=== PATIENT | female | born 1990 ===

== ENCOUNTER 2018-01-12 23:42 | Inpatient (IN) | payer MEDICAID ==
[2018-01-13 00:13] VITALS: BMI 25.4
[2018-01-13] MEDS ORDERED: AMPicillin 2 GM in Sodium Chloride 0.9% 100 ML IVPB STA (00:43)
[2018-01-13] MEDS: Lactated Ringer's 1,000 ML IV SCH ×5 (01:00→21:27)
[2018-01-13] MEDS ORDERED: Betamethasone Soluspan 30 mg/5mL Inj Susp IM ONE (01:35)
[2018-01-13 01:46] LABS: BASO % 0.6 % (0.0-2.0); EOS # 0.1 K/uL (0.0-0.7); EOS % 1.4 % (0.0-4.0); HEMOGLOBIN 12.2 g/dL (12.0-16.0); LYMPH # 1.4 K/uL (1.0-4.3); LYMPH % 18.1 % (20.0-40.0); MEAN CELL VOLUME 91.3 fl (81.0-99.0); MEAN CORPUSCULAR HEMOGLOBIN 31.3 pg (27.0-31.0); MEAN CORPUSCULAR HGB CONC 34.3 g/dL (33.0-37.0); MEAN PLATELET VOLUME 11.2 fl (7.2-11.7); MONO # 0.8 K/uL (0.0-0.8); MONO % 10.5 % (0.0-10.0); NEUT # 5.5 K/uL (1.8-7.0); NEUT % 69.4 % (50.0-75.0); NRBC % 0.1 % (0.0-0.0); RBC 3.9 Mil/uL (3.80-5.20); RED CELL DISTRIBUTION WIDTH 13.1 % (11.5-14.5); WHITE BLOOD COUNT 7.9 K/uL (4.8-10.8)
[2018-01-13 01:57] LABS: SQUAMOUS EPITHIAL 1 /hpf (0-5); URINE BACTERIA OCC (<OCC); URINE BILIRUBIN NEGATIVE (NEGATIVE); URINE BLOOD NEGATIVE (NEGATIVE); URINE CLARITY SLIGHTY-CLOUDY (Clear); URINE COLOR STRAW (YELLOW); URINE GLUCOSE (UA) 150 mg/dL (Normal); URINE LEUKOCYTE ESTERASE NEG Leu/uL (Negative); URINE PROTEIN NEGATIVE (NEGATIVE); URINE UROBILINOGEN 0.2-1.0 mg/dL (0.2-1.0)
[2018-01-13] MEDS ORDERED: AMPicillin 2 GM in Sodium Chloride 0.9% 100 ML IVPB SCH (04:00)
[2018-01-13] MEDS ORDERED: Azithromycin 250 MG in Sodium Chloride 0.9% 250 ML IVPB SCH ×2 (04:00→09:00)
--- NOTE | 2018-01-13 05:32 | US ---
EXAM: US After First Trimester, Transabdominal CLINICAL HISTORY: 27 years old, female; Pain; complicated by abdominal or pelvic pain; Lower; Third trimester; Gestational age or lmp: 05/27/2017; ; Additional info: Pprom, estimated weight TECHNIQUE: Real-time transabdominal obstetrical ultrasound of the maternal pelvis and a second or third trimester with image documentation. COMPARISON: No relevant prior studies available. FINDINGS: Fetus: Single live intrauterine gestation. Heart rate: heart rate of 137 beats per minute. Presentation: Breech. Placenta: Anterior placenta. No placenta previa or abruption. Amniotic fluid: SAMMY = 9.7 cm. Anatomy: No gross anomaly is appreciated. BIOMETRICS Gestational age: Estimated gestational age of 33 weeks 5 days by measurements. JUNE: 02/26/2018 by ultrasound. EFW: Estimated weight of 2194 g. BPD: 8.6 cm, correlating with 34 weeks 4 days. HC: 30.8 cm, correlating with 34 weeks 2 days. AC: 29.5 cm, correlating with 33 weeks 3 days. FL: 6.3 cm, correlating with 32 weeks 4 days. MATERNAL: Uterus: Unremarkable. No myometrial mass. Cervix: Closed cervix. Cervical length = 2.2 cm. Free fluid: No free fluid. IMPRESSION: 1. Single live intrauterine gestation. 2. Shortened cervix.
[2018-01-13 05:46] VITALS: O2SAT 100
[2018-01-13] MEDS ORDERED: ceFAZolin 1 GM in Sodium Chloride 0.9% 100 ML IVPB ONE (06:46)
--- NOTE | 2018-01-13 06:54 | OBADHP ---
Datetime: 01/13/2018 00:45 Admit Comment, IP Provider: 27 yo EGA: 33.0 presents with suspected ROM. Pt reports gush of clear fluid per vagina approximately 2 hours prior to arrival. Reports: FM, and occasional CTX; Denies: VB; last sexual activity <48 hrs ROS: denies: dizziness, headaches, blurred vision, CP/SOB/N/V, dysuria care: Dr. Castano at [facility]; dx with cholestasis of pregancy 2 weeks prior and on U rsodiol 300 mg BID obxh: 2010 male FT vaginal uncomplicated pmhx: none famhx: dm soc: denies: smoking, alcohol, illicit drugs surg: none allergies: dust/pollen Meds: ursodiol 300 mg BID General: pleasant, in no acute distress HEENT: normocephalic, PERRLA; AAOx3 Heart: no murmurs, regular rate and rhythm, S1, S2 normal. Lungs: clear to auscultation bilaterally, no wheezing Abdomen: nontender, gravid CVA: negative Lower extremities: negative for pitting edema bedside US: Breech presentation, decreased fluid pockets Speculum exam: revealed pooling, grossly ruptured 27 yo IUP 33 wks via LMP presents with PPROM -Admit to L_D -Labs: CBC, type and screen, UA, urine culture, GBS, HIV, RPR -Meds/Abx: Ampicillin 2 g q6, Erythromycin 250 mg q6 and Betamethasone 12 mg IM Q24 X 2; Continue Ursodiol 300 mg BID -Bedside US for estimated weight Case d/w Dr. Claudia Aleman MD PGY1 Addendum: at 33 weeks gestational age with PPROM in breech presentation. Patient without contractions at this time and cervix closed. heart tracing reassuring. Plan to admit patient for management. Start IV ampicillin and erythromycin, first dose of betameth asone, IV fluid hydration, OB ultrasound for estimated weight and cervical length. I discussed with patient all patient questions answered. I discussed with patient that there are any signs of lab or, compromise, or any signs of infection that delivery be necessary via due to breec h presentation. All patient questions answered. Maternal well-being and well-being reassuring at this time. [place] Pelvic Type - PN: Adequate Extremities - PN: Normal Abdomen - PN: Normal Back - PN: Normal Breast - PN: Not Done Lungs - PN: Normal Heart - PN: Normal Thyroid - PN: Not Done Neurologic - PN: Normal HEENT - PN: Normal General - PN: Normal FHR - Baseline A Provider: 140 Membranes, Provider: Ruptured Pool Provider: Positive Vital Signs Provider: Reviewed; Within Normal Limits IP Chief Complaint: Suspected ruptured membranes NICHD Variability Prov Fetus A: Moderate 6-25bpm NICHD Accel Fetus A IP Provider: [id number] FHR Category Provider Fetus A: Category I NICHD Decel Fetus A IP Provider: None Dilatation, Provider: 1 Effacement, Provider: 30 Station, Provider: -2 Genitourinary Exam: Normal DTRs - PN: Not Done IP Adm Impression: , intrauterine ; Ruptured Membranes IP Admit Plan: Admit to unit; Initiate labor protocol
--- NOTE | 2018-01-13 07:07 | OBPN ---
Datetime: 01/13/2018 06:55 IP Progress Impression: labor; Premature rupture of membranes IP Informed Consent Obtain: Section Delivery; Risks, Benefits and Alternatives Discussed IP Progress Plan: Deliver- Section IP Progress Note Comment: Patient with contractions increasing in frequency and intensity. Patient c omplaining of contractions being extremely painful at this time. Ultrasound confirms breech presentat ion, estimated weight 2195 g. I discussed case with MFM, recommended delivery due to PPROM and early labor and breech presentation. I discussed options with patient and recommended C-sec tion delivery due to labor, PPROM and breech presentation. After discussion of options, patie nt agreeing delivery. Discussed with patient the risks, benefits, alternatives of as well as risks of prematurity. Patient consented for . Neonatology and anesthesiology not ified. heart tracing is reassuring at this time. Datetime: 01/13/2018 00:45 Pool Provider: Positive Membranes, Provider: Ruptured FHR - Baseline A Provider: 140 Vital Signs Provider: Reviewed; Within Normal Limits NICHD Accel Fetus A IP Provider: [id number] FHR Category Provider Fetus A: Category I NICHD Variability Prov Fetus A: Moderate 6-25bpm Dilatation, Provider: 1 Effacement, Provider: 30 Station, Provider: -2 NICHD Decel Fetus A IP Provider: None
[2018-01-13] MEDS ORDERED: Morphine 1 mg/ml preservative-free Inj(Duramorph) ONE (07:12)
[2018-01-13] MEDS ORDERED: Ketamine 50 mg/ml Inj (10 ml) ONE (07:48)
[2018-01-13] MEDS ORDERED: Midazolam 2 MG/2 ML VIAL ONE (07:50)
[2018-01-13] MEDS ORDERED: Oxycodone/Acetaminophen 5/325 mg Tab PO PRN (08:15)
[2018-01-13] MEDS ORDERED: Naloxone 0.4 mg/ml Inj (Adult) IVP PRN (08:27)
--- NOTE | 2018-01-13 09:44 | OBDS ---
DELIVERY PERSONNEL Delivery Doctor: Jonh Taylor MD Private Watchman: Fina Arellano RN Anesthesiologist: Ian Ruiz MD Resident: Jones Aleman MD MATERNAL INFORMATION Delivery Anesthesia: Spinal Medications in Delivery: Pitocin 30units in 500mL of LR Placenta Cultured: Yes Maternal Complications: None Provider Comments: Primary low flap transverse section. Viable infant with Apgars of 9 and 9 at one and 5 minutes respectively. Complete breech presentati on. Light meconium, nuchal cord 1. Estimated blood loss 800 mL Fluids 1500 mL lactated Ringer's Urine output 50 mL No complications Patient tolerated procedure well LABOR SUMMARY EDC: 03/03/2018 00:00 No. Babies in Womb: 1 Attempted: No Labor Anesthesia: None LABOR INFORMATION Reason for Induction: Not Applicable Oxytocin: N/A Group B Beta Strep: Not Done Steroids Given: Partial Course; < 24 Hours before Delivery MEMBRANES Membranes Rupture Method: Spontaneous Rupture of Membranes: 01/12/2018 22:45 Length of Rupture (hrs): 8.88 Amniotic Fluid Color: Clear Amniotic Fluid Amount: Small Amniotic Fluid Odor: Normal STAGES OF LABOR Stage 3 hrs: 0 Stage 3 min: 1 CSECTION DELIVERY Primary Indication: Breech Presentation Secondary Indication: Other Other Secondary Indication: PPROM and Labor CSection Urgency: Non Elective CSection Incidence: Primary Labor: Labor Elective: Nonelective CSection Incision: Lower Uterine Transverse BABY A INFORMATION Infant Delivery Date/Time: 01/13/2018 07:38 Method of Delivery: Born in Route : No : N/A Forceps: N/A Vacuum Extraction: N/A Shoulder Dystocia : No SHOULDER DYSTOCIA BABY A Delivery Date/Time: 01/13/2018 07:38 PRESENTATION/POSITION BABY A Presentation: Breech Cephalic Presentation: N/A PLACENTA INFORMATION BABY A Placenta Delivery Time : 01/13/2018 07:39 Placenta Method of Delivery: Manual Removal Placenta Status: Delivered SCORES BABY A Heart Rate 1 min: >100 bpm Resp Effort 1 min: Good Cry Reflex Irritability 1 min: Cough or Sneeze or Pulls Away Muscle Tone 1 min: Active Motion Color 1 min: Body [place], Extremities Blue Resuscitation Effort 1 min: Tactile Stimulation SCORE 1 MIN: 9 Heart Rate 5 min: >100 bpm Resp Effort 5 min: Good Cry Reflex Irritability 5 min: Cough or Sneeze or Pulls Away Muscle Tone 5 min: Active Motion Color 5 min: Body [place], Extremities Blue Resuscitation Effort 5 min: N/A SCORE 5 MIN: 9 INFANT INFORMATION BABY A Gestational Age at Delivery: 33.0 Gestational Status: Outcome : Liveborn Infant Condition : Stable Sex: Male IDENTIFICATION/MEDS BABY A ID Band Number: [id number] WEIGHT/LENGTH BABY A Infant Birthweight (gms): 2320 Infant Weight (lb): 5 Infant Weight (oz): 2 CORD INFORMATION BABY A No. Cord Vessels: 3 Nuchal Cord : Around Neck x1, Loose Cord Blood Taken: Yes Suction: Mouth; Nose
[2018-01-13] MEDS: Simethicone 80 mg Chewtab PO SCH ×3 (10:46→21:34)
[2018-01-14] MEDS ORDERED: Betamethasone Soluspan 30 mg/5mL Inj Susp IM ONE (02:30)
[2018-01-14] MEDS: Lactated Ringer's 1,000 ML IV SCH (04:45)
[2018-01-14] MEDS: Simethicone 80 mg Chewtab PO SCH ×4 (04:47→21:54)
[2018-01-14 07:26] LABS: HEMOGLOBIN 11.4 g/dL (12.0-16.0); MEAN CELL VOLUME 91.2 fl (81.0-99.0); MEAN CORPUSCULAR HEMOGLOBIN 31.1 pg (27.0-31.0); MEAN CORPUSCULAR HGB CONC 34.1 g/dL (33.0-37.0); RBC 3.67 Mil/uL (3.80-5.20); RED CELL DISTRIBUTION WIDTH 13.1 % (11.5-14.5); WHITE BLOOD COUNT 11.6 K/uL (4.8-10.8)
--- NOTE | 2018-01-14 10:41 | OBPPN ---
Datetime: 01/14/2018 07:00 PP Pain Prov: Within normal limits PP Nausea Prov: Denies PP Flatus Prov: Yes PP BM Prov: No PP Breasts Prov: Not Done PP Heart Prov: Normal PP Lungs Prov: Normal PP Abdomen/Uterus Prov: Normal PP Lochia Prov: Normal PP Vulva/Perineum Prov: Not Done PP CVA Tenderness Prov: Normal PP Extremities Prov: Normal PP C/S Incision Prov: Not Applicable PP Progress Prov: Normal PP Comments Phys Exam Prov: scar will be examed with dressing removal this afternoon. Pt to begin pumping PP Impression Prov: Normal progression PP Plan Prov: Continue present management PP Progress Note Prov: POD 1 S: 27 yo s/p on 01/13/2018. Pt. is seen and examined at bedside this AM. No overn ight events. Pt reports mild abdominal pain, but well controlled with pain meds. D/c reza, dressing to removed this afternoon as per patient request. No nausea, advised to advance diet as tolerated. Br east feeding without difficulty. Lochia is similar to menses volume. No bowel movement but passing ga s per rectum. Denies fever/chills, diarrhea, nausea/vomiting, chest pain, dyspnea, and dizziness. O: VS: stable GEN: NAD Cardio: S1S2, no murmurs Lungs: clear breath sounds b/l, no wheezing Abdomen: BS+, tenderness to palpation. Uterus is firm and below the umbilicus. EXT: No edema, calves nontender NEURO/PSYCH: AAOx3, no grossly focal deficits, preserved affect and mood. Assessment/Plan: 27 yo s/p on 01/13/2018. Pt remains afebrile, tolerating pain wit h medication, doing well on POD#1. OOB with caution SCDs for DVT prophylaxis, encouraged ambulating Percocet 5/325mg, and Motrin 600mg for pain. Encourage and ambulating f/u CBC post op: 11.4/33.5 Anticipated d/c to home, 01/15/2018. Case dw OB attending --- Tony Aleman MD PGY-1 IP PP Procedures: None Vital Signs Provider PP: Reviewed; Within Normal Limits
[2018-01-14] MEDS: Oxycodone/Acetaminophen 5/325 mg Tab PO PRN ×2 (14:32→20:08)
[2018-01-15] MEDS: Simethicone 80 mg Chewtab PO SCH ×4 (05:32→21:18)
--- NOTE | 2018-01-15 11:41 | OBPPN ---
Datetime: 01/15/2018 07:13 PP Pain Prov: Within normal limits PP Nausea Prov: Denies PP Flatus Prov: Yes PP BM Prov: No PP Heart Prov: Normal PP Lungs Prov: Normal PP Abdomen/Uterus Prov: Normal PP Lochia Prov: Normal PP CVA Tenderness Prov: Normal PP Extremities Prov: Normal PP C/S Incision Prov: Normal PP Impression Prov: Normal progression PP Plan Prov: Continue present management PP Progress Note Prov: S: 27 yo s/p on 01/13/2018. Pt was seen and examined by sukhdepe arriaga. Pt reports feeling better than yesterday. Pain is moderate but well-controlled with medications. Pt is pumping breastmilk but reports not much output. Pt afebrile, tolerating PO, urinaring with NO issues. Pt passing gasses but NO bowel movement yet. Lochia is less than menses. Pt ambulating slowly . Pt denies chills, mood changes, headache, visual disturbances chest pain, SOB, abdominal pain, naus ea, vomiting, dysuria or rash. O: >VS:WNL >H/H post-op: 11.4/33.5 >Physical Exam: -GEN: NAD, comfortable, resting on chair next to bed, AOOx3. -NECK: ROM normal, no LAD. -CV: S1 S2 present, no murmurs -LUNGS: CTA B/L. -ABD: BS+. Uterus is firm and below the umbilicus. Surgical incision is closed, dry, clean, intact with NO erythema, fresh blood or suppuration. -EXT: No cyanosis and no calf tenderness. -NEURO/PSYCH: No grossly focal deficits, preserved affect and mood. A/P: 27 yo on POD #2. Pt [id number], stable, recovering well from . -Ambulation and breastmilk pumping were encouraged. -Continue post- management. -Anticipated discharge tomorrow 01/16/18. Case discissed with OB hospitalist material control analyst. GTolentino PGY-1. OB Hospitalist on-call.. t seen on rounds this morning...agree with PGY 1 note MAHNDO IP PP Procedures: None Vital Signs Provider PP: Reviewed
--- NOTE | 2018-01-15 13:11 | OP ---
PROCEDURE DATE: 01/13/2018 PREOPERATIVE DIAGNOSES: premature ruptured membranes, labor, and breech presentation. POSTOPERATIVE DIAGNOSES: premature ruptured membranes, labor, and breech presentation. OPERATION PERFORMED: Primary low-flap transverse section via Pfannenstiel incision. OPERATIVE FINDINGS: Viable infant with Apgars of 9 and 9 at 1 and 5 minutes respectively, meconium stained fluid, nuchal cord x1, complete breech presentation, normal uterus, normal tubes and ovaries bilaterally. SURGEON: Caio Taylor MD VICE PRESIDENT & GENERAL MANAGER [employer] [place]: Hung Marley DO. Dr. Marley was present from the beginning of the procedure to the end of procedure. Dr. Marley was integral in exposing the surgical field, controlling intraoperative bleeding, and manual delivery of the . TYPE OF ANESTHESIA: Spinal. ANESTHESIA ADMINISTERED BY: Nae Ruiz MD ESTIMATED BLOOD LOSS: 800 mL. FLUIDS: 1500 mL of Lactated Ringer's. URINE OUTPUT: 50 mL of clear urine. COMPLICATIONS: No complications. INDICATIONS FOR THE PROCEDURE: The patient presented to Obstetrical Emergency Department with premature rupture of membranes. Due to labor and in breech presentation, decision for delivery. DESCRIPTION OF THE PROCEDURE: The patient was taken to the operating room where spinal anesthesia was found to be adequate. The patient was prepped and draped in the normal sterile fashion in the dorsal supine position with a leftward tilt. A Pfannenstiel skin incision was made with a scalpel. This was carried down through to the underlying layer of fascia with the scalpel. Midline defect was made in the fascial layer with the scalpel. The fascial incision was then extended bilaterally sharply with curved Oneil scissors. The fascial layer was from the underlying rectus muscles both bluntly and sharply with curved Oneil scissors. The rectus muscles were at the midline. The peritoneum was then identified, tented up with Dora clamps x2, and entered sharply with Metzenbaum scissors. This peritoneal incision was then extended superiorly and inferiorly with a good visualization of the urinary bladder. A bladder blade was inserted into the abdomen. The vesicouterine peritoneum was then identified, tented up with Dora clamps x2, and entered sharply with Metzenbaum scissors. The bladder flap was created digitally. The Jia retractors were placed over the urinary bladder. The uterus was incised with a scalpel. The uterine incision was extended bilaterally bluntly. The breech of the was delivered without complication. The lower extremities were flexed and delivered bilaterally without complication. The upper extremities were flexed and swapped across the anterior surface of the infant and delivered bilaterally without complication. The head was flexed and delivered without complication. The infant's nose and mouth were suctioned with bulb suction. The cord was clamped and cut. The was handed off to waiting pediatricians. Cord gases were collected. Cord blood was collected. The placenta was removed manually. The uterus was cleared of all clots and debris. The uterine incision was repaired with 0 Vicryl in a running, locked fashion. Second layer of the same suture was used to imbricate the first and to obtain excellent hemostasis. The abdomen and pelvis were irrigated with copious amounts of warm normal saline. Reinspection of the uterine incision proved excellent hemostasis. All instruments were removed from the patient. The peritoneal layer was closed with a running stitch of 2-0 chromic. The rectus muscles were reapproximated with a running stitch of 2-0 chromic. The fascial layer was closed with a running stitch of 0 Vicryl. A subcutaneous tissue was closed with a running stitch of 3-0 plain. The skin was closed with a running stitch of 3-0 Vicryl. The patient tolerated the procedure well. All sponge, lap count, and needle counts were correct x2. The patient was given 1 g of Ancef just prior to the beginning of the procedure. There were no complications. The patient was taken to the recovery room in awake and stable condition. Caio Taylor MD
[2018-01-16] MEDS: Simethicone 80 mg Chewtab PO SCH ×3 (04:24→12:06)
--- NOTE | 2018-01-16 07:10 | OBPPN ---
Datetime: 01/16/2018 07:05 PP Pain Prov: Within normal limits PP Nausea Prov: Denies PP Flatus Prov: Yes PP BM Prov: Yes PP Abdomen/Uterus Prov: Normal PP Lochia Prov: Normal PP Extremities Prov: Normal PP C/S Incision Prov: Normal PP Progress Prov: Normal PP Comments Phys Exam Prov: Incision: intact w/ steri strips PP Impression Prov: Normal progression PP Plan Prov: Discharge PP Progress Note Prov: POD 3 s/p primary c/s for breech presentation Rx's motrin and percocet Discharge home today Vital Signs Provider PP: Reviewed; Within Normal Limits
--- NOTE | 2018-01-16 10:17 | OBDCSUM ---
Datetime: 01/16/2018 07:05 Discharged to, Provider: Home Follow up at, Provider: Disch Instr Activity: Normal activity Disch Instr Diet: Regular Discharge Instructions, Provider: Routine instructions given Discharge Diagnosis, Provider: Delivery Discharge Time: 01/16/2018 10:00 Follow up in weeks, Provider: 4-7 days wound check; 6 weeks post Disch Referrals: None Contraception discussed, Prov: Yes Disch Activity Restrictions: No lifting; Nothing in vagina - [place], tampons, douche Discharge Comment, Provider: Discharge Summary DOA: 01/13/2018 EGA: 33.0 Diagnosis: Term Risk factors: none Summary of : 27 yo F L_D summary DOL: 01/13/2018 at 7:38 NB: M : 04/16 Weight: 2320 g PP summary No serious complications during Post-Op. Lochia= menses, mild pain, controlled with medications Rubella immune, Tdap 12/2017 Blood type: O+ CBC pp: 11.4/33.5 Discharge Date: 01/16/2018 Time 10:00 AM Discharge Instructions: -encourage -percocet/Ibuprofen for pain PRN -Ambulate as tolerated -f/u NB visit 3-7 days w/ inspector firearms and PP visit 6 weeks with OB; Wound care 4-7 days Case d/w OB attending --- Tony Aleman MD PGY-1 Contraception after Delivery: Control Pill/Patch
[2018-01-16 17:09] VITALS: BP 95/53; PULSE 55; RESP 19; TEMP 97.8
== END 2018-01-16 12:00 | disposition home or self-care (01) | DRG 651 ==
LOC: H.EROB2 23:42 → H.L&D 01-13 00:43 → H.OB/GYN 01-13 10:00
PROVIDERS: ADMIT Obstetrics & Gynecology; ATTEND Obstetrics & Gynecology
PROC: 10D00Z1 Extraction of Products of Conception, Low, Open Approach (ICD-10-PCS; principal; 2018-01-13)
PROC: 4A1HXCZ Monitoring of Products of Conception, Cardiac Rate, External Approach (ICD-10-PCS; 2018-01-13)
DX: O60.14X0 Preterm labor third trimester with preterm delivery third trimester, not applicable or unspecified (principal); O32.1XX0 Maternal care for breech presentation, not applicable or unspecified; O42.913 Preterm premature rupture of membranes, unspecified as to length of time between rupture and onset of labor, third trimester; O69.81X0 Labor and delivery complicated by cord around neck, without compression, not applicable or unspecified; O77.0 Labor and delivery complicated by meconium in amniotic fluid; Z3A.33 33 weeks gestation of pregnancy; Z37.0 Single live birth